=== PATIENT | male | born 1945 | race Caucasian/White ===

== ENCOUNTER → 2021-02-11 10:53 | Outpatient (CLI) | payer MEDICARE, SELFPAY ==
[2021-02-11] MEDS: COVID-19 VACC #1, MRNA(MOD) 100 MCG/0.5 ML VIAL IM (11:03)
== END ==
PROVIDERS: Visit Provider Internal Medicine
DX: Z23 Encounter for immunization (principal)
CPT/HCPCS: 0011A; 91301

== ENCOUNTER → 2021-03-12 10:54 | Outpatient (CLI) | payer MEDICARE, SELFPAY ==
[2021-03-12] MEDS: COVID-19 VACC #2, MRNA(MOD) 100 MCG/0.5 ML VIAL IM (11:03)
== END ==
PROVIDERS: Visit Provider Internal Medicine
DX: Z23 Encounter for immunization (principal)
CPT/HCPCS: 0012A; 91301